=== PATIENT | female | born 1980 | race Caucasian/White ===

== ENCOUNTER 2017-04-12 15:19 | Emergency (ER) | payer OTHER ==
[2017-04-12] MEDS ORDERED: SODIUM CHLORIDE 0.9% 1,000 ML IV ONE (16:04)
--- NOTE | 2017-04-12 16:15 | ED ---
Female Urogenital HPI - General Chief complaint: Vaginal Bleeding Stated complaint: 5 wks preg/ bleeding Time Seen by Provider: 04/12/17 15:44 Source: patient, RN notes reviewed Mode of arrival: ambulatory Limitations: no limitations - History of Present Illness Initial comments: 36-year-old female presents emergency Department with chief complaint of intermittent vaginal bleeding over the last 11 days. Patient states she found out she was almost 2 weeks ago was states that she's been having some bleeding. Patient states that she felt that she was because she noticed that she had some breast tenderness and tension color her nipples. Patient states that she continues to have on-and-off bleeding states that sometimes is brownish color to bright red at this time. She states she didn't fill that a couple times it was more parameters. She denies any dysuria hematuria this time. She is concerned that she's had multiple problems with acute renal failure and infections of her kidney. She states that she has an abnormal ureter and she's had multiple stents and urostomy tube in the past. Patient is A2. Patient states she had D&E and D&C. Patient states that she had a stillborn at 18 weeks for her last . Patient denies any fevers or chills. Patient has not seen [facility]. Patient states that she is positive blood type. Patient denies any other complaints this time. Last Menstrual Period: 04/02/17 - Related Data Home Medications Medication Instructions Recorded Confirmed Multivitamins, Thera [Multivitamin 1 tab PO DAILY 04/12/17 04/12/17 (formulary)] Allergies Allergy/AdvReac Type Severity Reaction Status Date / Time Penicillins Allergy Anaphylaxis Verified 04/12/17 16:12 Sulfa (Sulfonamide Allergy Anaphylaxis Verified 04/12/17 16:12 Antibiotics) vancomycin Allergy Anaphylaxis Verified 04/12/17 16:12 Review of Systems ROS Statement: Those systems with pertinent positive or pertinent negative responses have been documented in the HPI. ROS Other: All systems not noted in ROS Statement are negative. Past Medical History Additional Past Medical History / Comment(s): nephrostomy tube History of Any Multi-Drug Resistant Organisms: None Reported Additional Past Surgical History / Comment(s): D&C Past Psychological History: Depression, PTSD Smoking Status: Current some day smoker Past Alcohol Use History: None Reported Past Drug Use History: None Reported General Exam Limitations: no limitations General appearance: alert, in no apparent distress Head exam: Present: atraumatic, normocephalic, normal inspection Eye exam: Present: normal appearance, PERRL, EOMI. Absent: scleral icterus, conjunctival injection, periorbital swelling Respiratory exam: Present: normal lung sounds bilaterally. Absent: respiratory distress, wheezes, rales, rhonchi, stridor Cardiovascular Exam: Present: regular rate, normal rhythm, normal heart sounds. Absent: systolic murmur, diastolic murmur, rubs, gallop, clicks GI/Abdominal exam: Present: soft, normal bowel sounds. Absent: distended, tenderness, guarding, rebound, rigid Back exam: Present: CVA tenderness (R) (Minimal). Absent: CVA tenderness (L) Neurological exam: Present: alert, oriented X3, CN II-XII intact Skin exam: Present: warm, dry, intact, normal color. Absent: rash Course Vital Signs 04/12/17 04/12/17 15:31 17:20 Temperature 97.9 F Pulse Rate 99 65 Respiratory 20 18 Rate Blood Pressure 130/92 120/69 O2 Sat by Pulse 99 99 Oximetry Medical Decision Making - Medical Decision Making 36-year-old female presented emergency department for vaginal bleeding early . Patient ultrasound shows possible endometrial cysts. Patient's beta Quant is less than 100 at this time. She most likely is having a miscarriage with the light bleeding. Patient will follow-up with [facility] [employer] [facility] for repeat exams. Return parameters were discussed. - Lab Data Result diagrams: 04/12/17 16:07 04/12/17 16:07 Lab Results 04/12/17 04/12/17 04/12/17 Range/Units 16:07 16:07 16:07 WBC 10.7 H (3.8-10.6) k/uL RBC 4.57 (3.80-5.40) m/uL Hgb 15.2 (11.4-16.0) gm/dL Hct 44.6 (34.0-46.0) % MCV 97.5 (80.0-100.0) fL MCH 33.2 (25.0-35.0) pg MCHC 34.0 (31.0-37.0) g/dL RDW 13.1 (11.5-15.5) % Plt Count 240 (150-450) k/uL Neutrophils % 61 % Lymphocytes % 30 % Monocytes % 5 % Eosinophils % 2 % Basophils % 1 % Neutrophils # 6.5 (1.3-7.7) k/uL Lymphocytes # 3.2 (1.0-4.8) k/uL Monocytes # 0.6 (0-1.0) k/uL Eosinophils # 0.2 (0-0.7) k/uL Basophils # 0.1 (0-0.2) k/uL Sodium 140 (137-145) mmol/L Potassium 4.0 (3.5-5.1) mmol/L Chloride 108 H (98-107) mmol/L Carbon Dioxide 21 L (22-30) mmol/L Anion Gap 11 mmol/L BUN 12 (7-17) mg/dL Creatinine 0.80 (0.52-1.04) mg/dL Est GFR (MDRD) Af Amer >60 (>60 ml/min/1.73 sqM) Est GFR (MDRD) Non-Af >60 (>60 ml/min/1.73 sqM) Glucose 84 (74-99) mg/dL Calcium 9.6 (8.4-10.2) mg/dL Total Bilirubin 0.3 (0.2-1.3) mg/dL AST 20 (14-36) U/L ALT 33 (9-52) U/L Alkaline Phosphatase 60 (38-126) U/L Total Protein 8.2 (6.3-8.2) g/dL Albumin 4.7 (3.5-5.0) g/dL HCG, Quant 64.9 mIU/mL Urine Color Urine Appearance (Clear) Urine pH (5.0-8.0) Ur Specific [place] (1.001-1.035) Urine Protein (Negative) Urine Glucose (UA) (Negative) Urine Ketones (Negative) Urine Blood (Negative) Urine Nitrite (Negative) Urine Bilirubin (Negative) Urine Urobilinogen (<2.0) mg/dL Ur Leukocyte Esterase (Negative) Urine RBC (0-5) /hpf Ur Squamous Epith Cells (0-4) /hpf Amorphous Sediment (None) /hpf Urine Mucus (None) /hpf Blood Type A Positive Blood Type Recheck No 04/12/17 Range/Units 16:07 WBC (3.8-10.6) k/uL RBC (3.80-5.40) m/uL Hgb (11.4-16.0) gm/dL Hct (34.0-46.0) % MCV (80.0-100.0) fL MCH (25.0-35.0) pg MCHC (31.0-37.0) g/dL RDW (11.5-15.5) % Plt Count (150-450) k/uL Neutrophils % % Lymphocytes % % Monocytes % % Eosinophils % % Basophils % % Neutrophils # (1.3-7.7) k/uL Lymphocytes # (1.0-4.8) k/uL Monocytes # (0-1.0) k/uL Eosinophils # (0-0.7) k/uL Basophils # (0-0.2) k/uL Sodium (137-145) mmol/L Potassium (3.5-5.1) mmol/L Chloride (98-107) mmol/L Carbon Dioxide (22-30) mmol/L Anion Gap mmol/L BUN (7-17) mg/dL Creatinine (0.52-1.04) mg/dL Est GFR (MDRD) Af Amer (>60 ml/min/1.73 sqM) Est GFR (MDRD) Non-Af (>60 ml/min/1.73 sqM) Glucose (74-99) mg/dL Calcium (8.4-10.2) mg/dL Total Bilirubin (0.2-1.3) mg/dL AST (14-36) U/L ALT (9-52) U/L Alkaline Phosphatase (38-126) U/L Total Protein (6.3-8.2) g/dL Albumin (3.5-5.0) g/dL HCG, Quant mIU/mL Urine Color Yellow Urine Appearance Clear (Clear) Urine pH 5.0 (5.0-8.0) Ur Specific [place] 1.019 (1.001-1.035) Urine Protein Negative (Negative) Urine Glucose (UA) Negative (Negative) Urine Ketones Negative (Negative) Urine Blood Trace H (Negative) Urine Nitrite Negative (Negative) Urine Bilirubin Negative (Negative) Urine Urobilinogen <2.0 (<2.0) mg/dL Ur Leukocyte Esterase Negative (Negative) Urine RBC 1 (0-5) /hpf Ur Squamous Epith Cells 2 (0-4) /hpf Amorphous Sediment Rare H (None) /hpf Urine Mucus Rare H (None) /hpf Blood Type Blood Type Recheck Disposition Clinical Impression: Threatened miscarriage Disposition: HOME SELF-CARE Condition: Stable Instructions: Threatened Miscarriage (ED) Additional Instructions: Please return to the Emergency Department if symptoms worsen or any other concerns. Referrals: None,Stated [Primary Care Provider] - 1-2 days Manas Graham MD [STAFF PHYSICIAN] - 1-2 days Time of Disposition: 18:26
[2017-04-12 16:27] LABS: Amorphous Sediment,Urine Rare /hpf; Appearance,Urine Clear (Clear); Bilirubin,Urine Negative (Negative); Glucose,Urine (UA) Negative (Negative); Ketones,Urine Negative (Negative); Leukocyte Esterase,Urine Negative (Negative); Mucus,Urine Rare /hpf; Nitrite,Urine Negative (Negative); Particle Count 850; Protein,Urine Negative (Negative); RBC,Urine 1 /hpf (0-5); Specific Gravity,Urine 1.019 (1.001-1.035); Squamous Epithelial Cell,Urine 2 /hpf (0-4); UA Billing (MACRO vs. MICRO) MICRO; Urobilinogen,Urine <2.0 mg/dL (<2.0)
[2017-04-12 16:30] LABS: Basophils # (A) 0.1 k/uL (0-0.2); Basophils % (A) 1 %; CH 34.1; CHCM 35.1; Eosinophils # (A) 0.2 k/uL (0-0.7); Eosinophils % (A) 2 %; HCT 44.6 % (34.0-46.0); HDW 2.33; HGB 15.2 gm/dL (11.4-16.0); Luc # (Auto) 0.19; Luc % (Auto) 2; Lymphocytes # (A) 3.2 k/uL (1.0-4.8); Lymphocytes % (A) 30 %; MCH 33.2 pg (25.0-35.0); MCV 97.5 fL (80.0-100.0); Mean Platelet Volume 7.9; Monocytes # (A) 0.6 k/uL (0-1.0); Monocytes % (A) 5 %; Neutrophils # (A) 6.5 k/uL (1.3-7.7); Neutrophils % (A) 61 %; RBC 4.57 m/uL (3.80-5.40); RDW 13.1 % (11.5-15.5); WBC 10.7 k/uL (3.8-10.6); WBC (Perox) 9.96
[2017-04-12 16:36] LABS: ALT 33 U/L (9-52); AST 20 U/L (14-36); Alkaline Phosphatase 60 U/L (38-126); Anion Gap 11 mmol/L; Blood Urea Nitrogen 12 mg/dL (7-17); Calcium 9.6 mg/dL (8.4-10.2); Carbon Dioxide 21 mmol/L (22-30); Chloride 108 mmol/L (98-107); Glucose 84 mg/dL (74-99); Non-African American GFR(MDRD) >60 (>60 ml/min/1.73 sqM); Sodium 140 mmol/L (137-145); Total Bilirubin 0.3 mg/dL (0.2-1.3); Total Protein 8.2 g/dL (6.3-8.2)
[2017-04-12 16:53] LABS: HCG,Quantitative Serum 64.9 mIU/mL
[2017-04-12 17:22] VITALS: RESP 18
--- NOTE | 2017-04-12 18:21 | US ---
EXAMINATION TYPE: US OB <=14 wks transvag DATE OF EXAM: 04/12/2017 COMPARISON: NONE CLINICAL HISTORY: Pain. Vaginal bleeding x 10 days with patient stating had positive test e kassi April EXAM PERFORMED: Transvaginal (TV) and Transabdominal (TA) EXAM MEASUREMENTS: GESTATIONAL AGE / DATING Physician Established: not established Dates by LMP: ( 4 weeks/5 days) EDC: 12/15/2017 First Scan: today Dates by Current Scan for: no IUP seen only cystic structure noted mid endometrium MATERNAL ANATOMY Uterus: 7.8 x 7.1 x 5.0cm; Nabothian cyst in CX = 0.4 x 0.4 x 0.4cm Endometrium: thickened at 1.5cm with cyst noted mid endometrium = 0.4 x 0.4 x 0.2cm Right Ovary: 3.1 x 2.1 x 2.0cm Left Ovary: 2.4 x 2.1 x 1.2cm Post CDS / Adnexa: wnl Presence of free fluid: no Presence of corpus luteal cyst: possibly in right ovary as thick walled cyst = 1.3 x 1.3 x 1.4cm Presence of subchorionic bleed: no IUP seen GESTATION / SURVEY No IUP or ectopic seen. Cystic structure noted mid endometrium. Date of LMP: 03/10/2017 Beta HcG (if available): 64.9 IMPRESSION: No current evidence of intrauterine . Cystic structure seen within the endometrium and could represent endometrial cyst, early that is low-lying, or an embryonic . Endometriu m is thickened and may represent a decidual reaction of early . Given the findings early pre gnancy, ectopic , and spontaneous are all possibilities. Short-term follow-up pelvi c ultrasound in 5-7 days and repeat serial serum beta hCGs are recommended.
[2017-04-12 18:27] VITALS: BP 124/67; PULSE 85; TEMP 98
== END 2017-04-12 18:42 | disposition home or self-care (01) ==
LOC: EC 15:19
DX: O20.0 Threatened abortion (principal); Z3A.01 Less than 8 weeks gestation of pregnancy; F17.200 Nicotine dependence, unspecified, uncomplicated; Z79.899 Other long term (current) drug therapy; Z88.0 Allergy status to penicillin; Z88.1 Allergy status to other antibiotic agents; Z88.2 Allergy status to sulfonamides
CPT/HCPCS: 36415; 76801; 76817; 80053; 81001; 84702; 85025; 86900; 86901; 96360; 96361; 99284

== ENCOUNTER 2017-06-01 21:29 | Emergency (ER) | payer SELFPAY ==
[2017-06-01] MEDS ORDERED: SODIUM CHLORIDE 0.9% 1,000 ML IV STA (21:57)
--- NOTE | 2017-06-01 22:18 | ED ---
General Adult HPI - General Chief complaint: Abdominal Pain Stated complaint: back pain/kidney problems Time Seen by Provider: 06/01/17 21:43 Source: patient Mode of arrival: ambulatory Limitations: no limitations - History of Present Illness Initial comments: This is a 36-year-old female who presents to the emergency department with complaint of right-sided flank pain. She does have a history of hydronephrosis , hydroureter, and kidney stones. She reports history of nephrostomy tubes and 9 stents. She presents today with complaint of 3 days of severe right-sided flank pain without radiation. The pain is described as a constant ache with intermittent episodes of sharp pain. There is associated nausea and a mild fever. Patient reports increased frequency of urination, but denies dysuria or urgency. Patient admits this pain feels like prior episodes of kidney stones. Denies chills, chest pain, shortness of breath, abdominal pain, vomiting, numbness, tingling, headache or vision changes. - Related Data Home Medications Medication Instructions Recorded Confirmed Multivitamins, Thera [Multivitamin 1 tab PO DAILY 04/12/17 06/01/17 (formulary)] Acetaminophen Tab [Tylenol Tab] 1,000 mg PO Q4-6H PRN 06/01/17 06/01/17 Allergies Allergy/AdvReac Type Severity Reaction Status Date / Time Cephalosporins Allergy Anaphylaxis Verified 06/01/17 21:44 Penicillins Allergy Anaphylaxis Verified 06/01/17 21:44 Sulfa (Sulfonamide Allergy Anaphylaxis Verified 06/01/17 21:44 Antibiotics) vancomycin Allergy Anaphylaxis Verified 06/01/17 21:44 Review of Systems ROS Statement: Those systems with pertinent positive or pertinent negative responses have been documented in the HPI. ROS Other: All systems not noted in ROS Statement are negative. Past Medical History Past Medical History: Renal Disease Additional Past Medical History / Comment(s): nephrostomy tube History of Any Multi-Drug Resistant Organisms: None Reported Additional Past Surgical History / Comment(s): D&C, 9 renal stents Past Psychological History: Depression, PTSD Smoking Status: Current some day smoker Past Alcohol Use History: None Reported Past Drug Use History: None Reported General Exam - General Exam Comments Initial Comments: General: Awake and alert, well-developed; she appears to be in moderate distress , rocking back and forth on the ED stretcher. Partner is at bedside. HEENT: Head atraumatic, normocephalic. Pupils are equal, round and reactive to light. Extraocular movements intact. Oropharynx moist without erythema or exudate. Neck: Supple. Normal ROM. No JVD. Trachea midline. No adenopathy. Cardiovascular: Regular rate and rhythm. No murmurs, rubs or gallops. Chest symmetrical. Respiratory: Wheezes present throughout all lung harmon. No rales or rhonchi. Normal respiratory efffort with no use of accessory muscles. Abdomen: Soft, non-tender, non-distended. No rigidity, rebound or guarding. Normal bowel sounds in all 4 quadrants. Back: Mild right-sided CVA tenderness on palpation. Skin: [place], warm and dry. Neurological: Alert and oriented x3. CN II-XII grossly intact. Speech is fluent and answers are appropriate. No focal neuro deficits. Psychiatric: Normal mood and affect. Limitations: no limitations Course Vital Signs 06/01/17 06/01/17 21:33 22:50 Temperature 100.0 F H Pulse Rate 83 84 Respiratory 20 18 Rate Blood Pressure 136/83 130/90 O2 Sat by Pulse 99 96 Oximetry Medical Decision Making - Medical Decision Making At this time patient is doing well and does not appear to be in any apparent distress. This case was discussed with attending physician Dr. Collazo. test was positive with a beta quant of 40,697. Transvaginal ultrasound revealed a normal intrauterine at 5 weeks 4 days. Patient was provided with information to contact and follow up with Dr. Dalal, OB. Ultrasound of the kidneys, ureters, and bladder was unremarkable-no masses, hydronephrosis or nephrolithiasis. UA demonstrated no infectious process but a large amount of red blood cells was present. Patient was provided with information to contact and follow up with Dr. Paz, urology. - Lab Data Lab Results 06/01/17 06/01/17 Range/Units 22:12 22:12 Urine Color Light Red Urine Appearance Clear (Clear) Urine pH 6.0 (5.0-8.0) Ur Specific [place] 1.025 (1.001-1.035) Urine Protein Trace H (Negative) Urine Glucose (UA) Negative (Negative) Urine Ketones Trace H (Negative) Urine Blood Large H (Negative) Urine Nitrite Negative (Negative) Urine Bilirubin 1+ H (Negative) Urine Urobilinogen 2.0 (<2.0) mg/dL Ur Leukocyte Esterase Small H (Negative) Urine RBC >182 H (0-5) /hpf Ur Squamous Epith Cells 3 (0-4) /hpf Urine Mucus Occasional H (None) /hpf Urine HCG, Qual Detected (Not Detectd) Disposition Clinical Impression: Hematuria Disposition: HOME SELF-CARE Condition: Good Instructions: Hematuria (ED) Additional Instructions: Please follow up with OB and Urologist within 1-2 days. Contact information was provided. Return to ED if symptoms worsen. Referrals: None,Stated [Primary Care Provider] - 1-2 days Chalino Paz MD [STAFF PHYSICIAN] - 1-2 days Greg Dalal MD [STAFF PHYSICIAN] - 1-2 days Time of Disposition: 01:17
[2017-06-01] MEDS: KETOROLAC 30 MG/ML 1 ML VIAL IVP STA ×2 (22:26→22:36)
[2017-06-01] MEDS: ONDANSETRON 4 MG/2 ML VIAL IVP STA ×2 (22:26→22:36)
[2017-06-01 22:29] LABS: Appearance,Urine Clear (Clear); Bilirubin,Urine 1+ (Negative); Glucose,Urine (UA) Negative (Negative); Ketones,Urine Trace (Negative); Leukocyte Esterase,Urine Small (Negative); Mucus,Urine Occasional /hpf; Nitrite,Urine Negative (Negative); Particle Count 4742; Protein,Urine Trace (Negative); RBC,Urine >182 /hpf (0-5); Specific Gravity,Urine 1.025 (1.001-1.035); Squamous Epithelial Cell,Urine 3 /hpf (0-4); UA Billing (MACRO vs. MICRO) MICRO
[2017-06-01] MEDS ORDERED: METOCLOPRAMIDE 5 MG/ML 2 ML VIAL IVP STA (22:31)
[2017-06-01 23:20] LABS: ALT 24 U/L (9-52); AST 20 U/L (14-36); Alkaline Phosphatase 51 U/L (38-126); Anion Gap 12 mmol/L; Blood Urea Nitrogen 9 mg/dL (7-17); Calcium 9.1 mg/dL (8.4-10.2); Carbon Dioxide 23 mmol/L (22-30); Chloride 105 mmol/L (98-107); Glucose 95 mg/dL (74-99); Non-African American GFR(MDRD) >60 (>60 ml/min/1.73 sqM); Sodium 140 mmol/L (137-145); Total Bilirubin 0.2 mg/dL (0.2-1.3); Total Protein 7.7 g/dL (6.3-8.2)
[2017-06-02 00:26] LABS: Basophils % (A) 1 %; CH 33.4; CHCM 34.6; Eosinophils # (A) 0.2 k/uL (0-0.7); Eosinophils % (A) 2 %; Luc % (Auto) 2; Lymphocytes # (A) 2.5 k/uL (1.0-4.8); Lymphocytes % (A) 37 %; MCH 32.3 pg (25.0-35.0); MCHC 33.2 g/dL (31.0-37.0); MCV 97.1 fL (80.0-100.0); Mean Platelet Volume 9.6; Monocytes # (A) 0.5 k/uL (0-1.0); Monocytes % (A) 8 %; Neutrophils # (A) 3.6 k/uL (1.3-7.7); Neutrophils % (A) 51 %; RBC 4.32 m/uL (3.80-5.40); RDW 13.4 % (11.5-15.5); WBC (Perox) 7.13
--- NOTE | 2017-06-02 00:39 | US ---
EXAMINATION TYPE: US kidneys/renal and bladder DATE OF EXAM: 06/02/2017 COMPARISON: NONE CLINICAL HISTORY: Pain. RLQ pain EXAM MEASUREMENTS: Right Kidney: 11.0 x 3.9 x 4.7 cm Left Kidney: 11.2 x 4.3 x 3.7 cm Right Kidney: No hydronephrosis or masses seen Left Kidney: No hydronephrosis or masses seen Bladder: Not fully distended Bilateral Jets seen: No There is no evidence for hydronephrosis at this point in time. No nephrolithiasis is seen. No sonido s are identified. The urinary bladder is anechoic. Bilateral ureteral jets are seen. IMPRESSION: Normal retroperitoneal sonogram exam. No evidence of renal mass or obstruction.
--- NOTE | 2017-06-02 00:49 | US ---
EXAMINATION TYPE: US OB <=14 wks transvag DATE OF EXAM: 06/02/2017 COMPARISON: NONE CLINICAL HISTORY: positive test. back pain. . RLQ pain EXAM PERFORMED: Transvaginal (TV) and Transabdominal (TA) EXAM MEASUREMENTS: GESTATIONAL AGE / DATING Physician Established: Not yet established Dates by LMP: LMP unknown Dates by First Scan: No previous this is first scan Dates by Current Scan for: (5 weeks/4 days) EDC: 01/29/2018 MATERNAL ANATOMY Uterus: 9.6 x 7.1 x 6.7 cm Right Ovary: 2.8 x 2.0 x 2.5 cm Post CDS / Adnexa: wnl Presence of free fluid: wnl Presence of corpus luteal cyst: yes Presence of subchorionic bleed: no GESTATION / SURVEY CRL: 0.25 (5 weeks/6 days) MSD: 1.17 (5 weeks/2 days) Yolk Sac (normal less than 6mm): 0.32 IUP: Viable IUP Date of LMP: Unknown Beta HcG (if available): 07422.2 5 wks 4 days IUP VALENTÍN 01/29/2018 fluttering visualized to small to measure heartrate IMPRESSION: Intrauterine gestational sac. The ultrasound gestational age is 5 weeks 4 days according to the crown-rump length. Fetus was too sm all to demonstrate the heartbeat. There was some cardiac flutter. I see no complicating process .
[2017-06-02 00:52] VITALS: RESP 16; TEMP 99.3
[2017-06-02 01:44] VITALS: BP 103/56; PULSE 78
== END 2017-06-02 01:44 | disposition home or self-care (01) ==
LOC: EC 21:29
DX: O99.89 Other specified diseases and conditions complicating pregnancy, childbirth and the puerperium (principal); R31.9 Hematuria, unspecified; R10.9 Unspecified abdominal pain; R11.0 Nausea; O26.891 Other specified pregnancy related conditions, first trimester; R50.9 Fever, unspecified; O99.331 Smoking (tobacco) complicating pregnancy, first trimester; F17.200 Nicotine dependence, unspecified, uncomplicated; Z3A.01 Less than 8 weeks gestation of pregnancy; Z88.0 Allergy status to penicillin; Z88.1 Allergy status to other antibiotic agents; Z88.2 Allergy status to sulfonamides
CPT/HCPCS: 36415; 80053; 85025; 81001; 81025; 84702; 99284; 96374; 96361 ×3; J2765; 76770; 76801; 76817

== ENCOUNTER 2017-10-07 14:40 | Emergency (ER) | payer OTHER ==
[2017-10-07 15:20] VITALS: BP 122/88; PULSE 97; RESP 22; TEMP 100
--- NOTE | 2017-10-07 15:47 | ED ---
General Adult HPI - General Chief complaint: Extremity Injury, Lower Stated complaint: Knee pain Time Seen by Provider: 10/07/17 15:16 Source: patient, RN notes reviewed Mode of arrival: wheelchair Limitations: no limitations - History of Present Illness Initial comments: This is a 37-year-old female who presents to the emergency department with chief complaint of knee pain. Patient states for the past month she has been having bilateral knee pain. Patient states that she does not believe it is a bone problem but a "internal issue." She denies any falls or injuries. Patient states that this morning while getting up her left knee gave out. She caught herself before her knee hit the ground. Patient states that she feels her left knee is swollen. She states she has been taking Tylenol with minimal relief. Patient states that she is currently 7 months . She states that after she had her knee give out and she vomited. Denies fever or chills, abdominal pain, nausea, diarrhea or constipation. - Related Data Home Medications Medication Instructions Recorded Confirmed Multivitamins, Thera [Multivitamin 1 tab PO DAILY 04/12/17 06/01/17 (formulary)] Acetaminophen Tab [Tylenol Tab] 1,000 mg PO Q4-6H PRN 06/01/17 06/01/17 Allergies Allergy/AdvReac Type Severity Reaction Status Date / Time Cephalosporins Allergy Anaphylaxis Verified 10/07/17 15:20 Penicillins Allergy Anaphylaxis Verified 10/07/17 15:20 Sulfa (Sulfonamide Allergy Anaphylaxis Verified 10/07/17 15:20 Antibiotics) vancomycin Allergy Anaphylaxis Verified 10/07/17 15:20 Review of Systems ROS Statement: Those systems with pertinent positive or pertinent negative responses have been documented in the HPI. ROS Other: All systems not noted in ROS Statement are negative. Past Medical History Past Medical History: Renal Disease Additional Past Medical History / Comment(s): nephrostomy tube History of Any Multi-Drug Resistant Organisms: None Reported Additional Past Surgical History / Comment(s): D&C, 9 renal stents Past Psychological History: Depression, PTSD Smoking Status: Current every day smoker Past Alcohol Use History: None Reported Past Drug Use History: None Reported General Exam - General Exam Comments Initial Comments: General: Awake and alert, well-developed; in no apparent distress. HEENT: Head atraumatic, normocephalic. Pupils are equal, round and reactive to light. Extraocular movements intact. Oropharynx moist without erythema or exudate. Neck: Supple. Normal ROM. Cardiovascular: Regular rate and rhythm. No murmurs, rubs or gallops. Chest symmetrical. Respiratory: Lungs clear to auscultation bilaterally. No wheezes, rales or rhonchi. Normal respiratory effort with no use of accessory muscles. Musculoskeletal: Normal ROM of bilateral knees. No joint effusion, swelling, bruising or erythema noted. No tenderness with valgus or varus stress. No patellar tenderness. Tenderness on palpation of the lateral joint line of left knee. Pedal pulses are 2+ equal and palpable bilaterally. Sensation is intact. No bilateral calf tenderness. Skin: [place], warm and dry without rashes or lesions. Neurological: Alert and oriented x3. CN II-XII grossly intact. Speech is fluent and answers are appropriate. No focal neuro deficits. Limitations: no limitations Course Vital Signs 10/07/17 15:16 Temperature 100.0 F H Pulse Rate 97 Respiratory 22 Rate Blood Pressure 122/88 O2 Sat by Pulse 97 Oximetry Medical Decision Making - Medical Decision Making This is a 37-year-old female who presents to the emergency department chief complaint of knee pain. Patient denies any specific injury or trauma. She is currently 7 months . I explain to patient that we can shield her and do an x-ray of her left knee which gave out on her this morning. Patient declines, stating that she does not believe it is an issue with her bone and internal issue. I recommended patient to follow up with her primary care provider to obtain a referral to orthopedics for follow-up and additional evaluation and treatment. Patient is in no acute distress at this time. She will be discharged home. She is in agreement voices understanding. All questions were answered. Disposition Clinical Impression: Bilateral knee pain Disposition: HOME SELF-CARE Condition: Good Instructions: Knee Pain (ED) Additional Instructions: Please follow-up with primary care provider to obtain referral to orthopedics. May continue to take Tylenol as needed. Please follow up with primary care provider within 1-2 days. Return to emergency department if symptoms should worsen or any concerns arise. Referrals: None,Stated [Primary Care Provider] - 1-2 days Time of Disposition: 15:48
== END 2017-10-07 16:04 | disposition home or self-care (01) ==
LOC: EC 14:40
DX: O99.89 Other specified diseases and conditions complicating pregnancy, childbirth and the puerperium (principal); M25.562 Pain in left knee; M25.561 Pain in right knee; M79.89 Other specified soft tissue disorders; O99.333 Smoking (tobacco) complicating pregnancy, third trimester; F17.200 Nicotine dependence, unspecified, uncomplicated; Z79.899 Other long term (current) drug therapy; Z88.0 Allergy status to penicillin; Z88.1 Allergy status to other antibiotic agents; Z88.2 Allergy status to sulfonamides; Z3A.00 Weeks of gestation of pregnancy not specified
CPT/HCPCS: 99283

== ENCOUNTER 2017-11-16 17:02 | Emergency (ER) | payer OTHER ==
[2017-11-16 17:16] VITALS: RESP 18
--- NOTE | 2017-11-16 17:45 | ED ---
Lower Extremity Injury HPI - General Chief Complaint: Extremity Injury, Lower Stated Complaint: Knee pain Time Seen by Provider: 11/16/17 17:17 Source: patient, RN notes reviewed Mode of arrival: wheelchair Limitations: no limitations - History of Present Illness Initial Comments: This is a 37-year-old female who is currently 30 weeks who presents to the emergency department with chief complaint of bilateral knee pain. Patient was seen by myself one month ago with the same complaint. At that time, she declined x-rays. I recommended that she follow-up with orthopedics. Patient has not followed up with orthopedics. She presents again to the emergency department today with chief complaint of continued bilateral knee pain. She states that right knee pain is worse than left knee pain. Partner at bedside states that with any movement and especially at night patient screams because she is in so much pain. Patient states that her [employer] told her that she will sign off for patient to obtain an MRI. Patient denies any recent injuries, trauma or falls. She states that she has difficulty ambulating due to the pain. Again, she states that she feels that the pain is internal. Denies fever , chills, chest pain, shortness of breath, abdominal pain, nausea or vomiting, constipation or diarrhea, dysuria or hematuria, numbness or tingling, headache or vision changes. - Related Data Home Medications Medication Instructions Recorded Confirmed Pnv No.95/Ferrous Fum/Folic AC 1 tab PO HS 11/16/17 11/16/17 [ Multivitamin Tablet] Allergies Allergy/AdvReac Type Severity Reaction Status Date / Time Cephalosporins Allergy Anaphylaxis Verified 11/16/17 17:24 Penicillins Allergy Anaphylaxis Verified 11/16/17 17:24 Sulfa (Sulfonamide Allergy Anaphylaxis Verified 11/16/17 17:24 Antibiotics) vancomycin Allergy Anaphylaxis Verified 11/16/17 17:24 Review of Systems ROS Statement: Those systems with pertinent positive or pertinent negative responses have been documented in the HPI. ROS Other: All systems not noted in ROS Statement are negative. Past Medical History Past Medical History: Renal Disease Additional Past Medical History / Comment(s): nephrostomy tube History of Any Multi-Drug Resistant Organisms: None Reported Additional Past Surgical History / Comment(s): D&C, 9 renal stents Past Psychological History: Depression, PTSD Smoking Status: Current every day smoker Past Alcohol Use History: None Reported Past Drug Use History: None Reported General Exam - General Exam Comments Initial Comments: General: Awake and alert, well-developed; patient is sitting in a wheelchair and is very vocal. Partner is at bedside. HEENT: Head atraumatic, normocephalic. Pupils are equal, round and reactive to light. Extraocular movements intact. Oropharynx moist without erythema or exudate. Neck: Supple. Normal ROM. Cardiovascular: Regular rate and rhythm. No murmurs, rubs or gallops. Chest symmetrical. Respiratory: Lungs clear to auscultation bilaterally. No wheezes, rales or rhonchi. Normal respiratory effort with no use of accessory muscles. Musculoskeletal: Patient screams with palpation to any part of bilateral knees, specifically the medial aspects. No calf tenderness. Sensation is intact. Pedal pulses are 2+ equal and palpable bilaterally. Skin: [place], warm and dry without rashes or lesions. Neurological: Alert and oriented x3. CN II-XII grossly intact. Speech is fluent and answers are appropriate. No focal neuro deficits. Psychiatric: Patient is very agitated and anxious. Limitations: no limitations Course Vital Signs 11/16/17 17:13 Temperature 100 F H Pulse Rate 115 H Respiratory 18 Rate Blood Pressure 139/89 O2 Sat by Pulse 98 Oximetry Medical Decision Making - Medical Decision Making This is a 37-year-old female who presents to the emergency department with chief complaint of bilateral knee pain. The knee pain been present for the last 2-3 months. Patient denies any specific injuries or trauma. She is currently 30 weeks . This time, x-rays were obtained of the bilateral knees. 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 Findings were discussed with patient. Vital signs are stable and she is in no acute distress. This case was discussed with attending physician, Dr. Collazo. Recommended follow-up with orthopedics. Patient is in agreement and voices understanding. All questions were answered. - Radiology Data Radiology results: report reviewed X-ray bilateral knees impression: There is evidence for chronic avascular necrosis in the distal femurs. Clinical correlation is recommended. This can be associated with blood dyscrasia. As read by Dr. Whitney. Disposition Clinical Impression: Avascular necrosis of femur Disposition: HOME SELF-CARE Condition: Good Instructions: Knee Pain (ED) Additional Instructions: Please follow-up with Dr. Whittaker, orthopedics within 1-2 days. Please follow up with primary care provider within 1-2 days. Return to emergency department if symptoms should worsen or any concerns arise. Referrals: None,Stated [Primary Care Provider] - 1-2 days Paul Whittaker MD [STAFF PHYSICIAN] - 1-2 days Time of Disposition: 19:12
--- NOTE | 2017-11-16 18:34 | XR ---
EXAMINATION TYPE: XR knee complete bilateral DATE OF EXAM: 11/16/2017 COMPARISON: NONE HISTORY: Bilateral knee pain TECHNIQUE: 6 views FINDINGS: There is some cortical loss of the contour of the femoral condyles on the lateral view. The re is some mild sclerosis in the distal femoral condyles. There is no sign of joint effusion. I see n o displaced fracture. IMPRESSION: There is evidence for chronic avascular necrosis in the distal femurs. Clinical correlati on is recommended. This can be associated with blood dyscrasia.
[2017-11-16 19:02] VITALS: BP 109/73; PULSE 87; TEMP 99.2
== END 2017-11-16 19:27 | disposition home or self-care (01) ==
LOC: EC 17:02
DX: O99.89 Other specified diseases and conditions complicating pregnancy, childbirth and the puerperium (principal); M87.9 Osteonecrosis, unspecified; O99.333 Smoking (tobacco) complicating pregnancy, third trimester; F17.200 Nicotine dependence, unspecified, uncomplicated; Z88.0 Allergy status to penicillin; Z88.1 Allergy status to other antibiotic agents; Z88.2 Allergy status to sulfonamides; Z3A.30 30 weeks gestation of pregnancy
CPT/HCPCS: 99283